=== PATIENT | female | born 1960 | race Caucasian/White ===

== ENCOUNTER 2020-02-25 13:44 | Observation (INO) | payer OTHER ==
[2020-02-25] VITALS (17 sets, daily range): BP systolic 94–117; BP diastolic 51–66
[~2020-02-25] VITALS: Ht 162.6 cm; Wt 73.6 kg
[2020-02-25] MEDS ORDERED: ondansetron/PF 4mg/2ml inj IV ONE (14:00)
[2020-02-25] MEDS ORDERED: morphine 4 MG/ML inj SYRINge IV ONE (14:00)
[2020-02-25] MEDS ORDERED: potassium Cl 10 mEq/100mL bag IV ONE (14:00)
[2020-02-25] MEDS ORDERED: ringers solution, lacted 1,000 ML IV SCH (14:18)
[2020-02-25] MEDS ORDERED: morphine 4 MG/ML inj SYRINge IV PRN (14:20)
[2020-02-25] MEDS ORDERED: meperidine/PF 25mg/ml syringe IV PRN ×3 (14:20)
[2020-02-25] MEDS ORDERED: morphine 2 MG/ML inj. syringe IV PRN (14:20)
[2020-02-25] MEDS ORDERED: ondansetron/PF 4mg/2ml inj IV PRN ×2 (14:20→16:25)
[2020-02-25] MEDS ORDERED: proCHLORperazine 10 MG/2 ml inj IV PRN (14:20)
[2020-02-25] MEDS ORDERED: NO HOME MEDS (14:46)
[2020-02-25] MEDS ORDERED: BUPIVAcaine/PF 2.5 mg/ml (0.25%) 30ml vial ONE (14:55)
[2020-02-25] MEDS ORDERED: LIDOcaine 1% 30ml preserv. free vial ONE (14:55)
--- NOTE | 2020-02-25 15:05 | NUR ---
pT PREPPED FOR OR BY MARGOTH REAVES; TO OR
[2020-02-25] MEDS ORDERED: fentaNYL/PF 50MCG/1 ML 2ML syringe ONE (15:09)
[2020-02-25] MEDS ORDERED: midazolam 2 mg/2 ml injection ONE (15:09)
[2020-02-25] MEDS ORDERED: rocuronium 10mg/ml inj IV ONE (15:10)
[2020-02-25] MEDS ORDERED: dexamethasone sod phosphate 4mg/ml inj. ONE (15:10)
[2020-02-25] MEDS ORDERED: LIDOcaine 2% (20mg/ml) 5ml vial ONE (15:10)
[2020-02-25] MEDS ORDERED: propofol inj 20 ML IV ONE (15:10)
[2020-02-25] MEDS ORDERED: sevoflurane 250ml liquid IH ONE (15:15)
[2020-02-25] MEDS ORDERED: ondansetron/PF 4mg/2ml inj ONE (15:34)
[2020-02-25] MEDS ORDERED: ceFOXitin 1000 MG inj ONE ×2 (15:37)
[2020-02-25] MEDS ORDERED: ketorolac trometh. 30mg/ml inj. ONE (16:03)
[2020-02-25] MEDS ORDERED: glycopyrrolate 0.2mg/ml inj ONE (16:12)
[2020-02-25] MEDS ORDERED: neostigmine methylsulfate 1 MG/ML 10ml vial ONE (16:12)
[2020-02-25] MEDS ORDERED: HYDROcodone/acetaminophen 10/325mg tab PO PRN (16:25)
[2020-02-25] MEDS ORDERED: Potassium Cl inj 20 MEQ in ringers solution, lacted 1,000 ML IV SCH (16:25)
[2020-02-25] MEDS ORDERED: HYDROcodone/acetaminophen 5mg/325mg tablet PO PRN (16:25)
--- NOTE | 2020-02-25 16:32 | NUR ---
Received from OR via BED , accompanied by Anesthesiologist DR NULL and report given by Anesthesiologist. VSS, FOLLOWS COMMANDS EASILY. VSS. ABD SOF/NONTENDER. ABD BANDAIDS CDI. DENIES ANY DISCOMFORT. IV RIGHT AC PATENT. SCD'S APPLIED. Addendum: 02/25/20 at 1705 by Mellisa House RN Amended: Links added.
--- NOTE | 2020-02-25 17:40 | NUR ---
VSS. ABD SOFT/NONDISTENDED. ABD BANDAIDS CDI. DENIES PAIN. #20 SL RIGHT AC. #20 LEFT AC IV WITH PRIMARY FLUIDS. REPORT CALLED TO CLEMENTINA REAVES WITH ALL QUESTIONS ANSWERED. PT TRANSFERRED TO 349 VIA BED WITH PERSONAL BELONGINGS PRESENT WITH CLEMENTINA TO RECEIVE PT IN THE ROOM. Addendum: 02/25/20 at 1800 by Mellisa House RN Amended: Links added.
--- NOTE | 2020-02-25 17:59 | NUR ---
Patient arrived to floor call light in place. IV infusing per MD orders. Patient alert and oriented and oriented to room . Patient given call light and her cell phone and she is talking to her son on the phone.
[2020-02-25] MEDS: LACTED IV SCH (18:17)
[2020-02-25] MEDS: RINGERS IV SCH (18:17)
[2020-02-25] MEDS: POTASSIUM ACETATE IV SCH (18:17)
--- NOTE | 2020-02-25 18:44 | NUR ---
Problems reprioritized. Patient report given, questions answered & plan of care reviewed with Smitha REAVES.
--- NOTE | 2020-02-25 18:56 | NUR ---
Patient in room [facility]. I have received report from Ana REAVES and had the opportunity to ask questions and assume patient care.
[2020-02-25] MEDS: acetaminophen 325mg tablet PO SCH (19:43)
[2020-02-25] MEDS: ketorolac trometh. 30mg/ml inj. IV SCH (19:43)
[2020-02-26] VITALS: BP 100/53
[2020-02-26] MEDS ORDERED: ceFOXitin 1 GM/D5W 50mL IVPB 1,000 GM in normal saline 100ml IV soln 100 ML IV SCH ×2
[2020-02-26] MEDS ORDERED: ceFOXitin 1 GM/D5W 50mL IVPB 1 GM in normal saline 100ml IV soln 100 ML IV SCH ×2
[2020-02-26] MEDS: LACTED IV SCH ×2 (01:48→12:52)
[2020-02-26] MEDS: POTASSIUM ACETATE IV SCH ×2 (01:48→12:52)
[2020-02-26] MEDS: RINGERS IV SCH ×2 (01:48→12:52)
[2020-02-26] MEDS: acetaminophen 325mg tablet PO SCH ×3 (01:50→13:53)
[2020-02-26] MEDS: ketorolac trometh. 30mg/ml inj. IV SCH ×3 (01:50→14:00)
[2020-02-26] MEDS: ceFOXitin 1 GM/D5W 50mL IVPB 50 ML IV SCH ×2 (01:51→07:33)
--- NOTE | 2020-02-26 06:40 | NUR ---
Problems reprioritized. Patient report given, questions answered & plan of care reviewed with Yeni REAVES.
[2020-02-26 07:00] VITALS: BP 104/57
[2020-02-26 12:00] VITALS: BP 121/62
[2020-02-26] MEDS ORDERED: HYDR-4383 PO (14:21)
--- NOTE | 2020-02-26 15:24 | NUR ---
PT DISCHARGED IN STABLE CONDITION. LEFT FACILITY IN PRIVATE VEHICLE WITH SON. 2 IVs DC CANULAS INTACT. FOLLOW UP INSTRUCTIONS GIVEN, PT AWARE SHE CAN CALL DR ZIMMERMAN OFFICE WITH ANY CONCERNS, FOLLOW WILL NOT BE LOCAL. ALL BELONGINGS IN HAND, INCLUDING RX FOR NORCO. Addendum: 02/26/20 at 1526 by Sandra Gordon RN Amended: Links added.
== END 2020-02-26 14:44 | disposition home or self-care (01) ==
LOC: ER 13:45 → ED HOLD 14:51 → SUR 3N 17:48
PROVIDERS: ADMIT Surgery; ATTEND Surgery
DX: K35.80 Unspecified acute appendicitis (principal)
CPT/HCPCS: 44970; 87081; 96365; 96366; 96375; 96376; 99284; G0378; J0694; J1100; J1885; J2001; J2250; J2270; J2405; J2704; J2710; J3010; J3480; J3490; J7030; A4215; A4618; A7000; J7120